=== PATIENT | female | born 1965 | race Caucasian/White ===

== ENCOUNTER 2017-12-12 12:00 | Emergency (ER) | payer BC ==
[~2017-12-12] VITALS: Ht 157.5 cm; Wt 61.0 kg
[2017-12-12] MEDS ORDERED: SODIUM CHLORIDE FLUSH 10ML SYR IVF ONE (12:30)
[2017-12-12] MEDS ORDERED: ONDANSETRON 2MG/ML, 2ML IVPush ONE (12:30)
[2017-12-12 12:40] LABS: BASOPHILS # (AUTO) 0.03 x10^3/uL (0-0.1); BASOPHILS % (AUTO) 1 % (0-1); EOSINOPHILS % (AUTO) 0 % (1-7); LYMPHOCYTES # (AUTO) 0.95 x10^3/uL (1-3.4); LYMPHOCYTES % (AUTO) 16 % (22-44); MD NO; MEAN CORPUSCULAR HEMOGLOBIN 20.8 pg (27.0-34.8); MEAN CORPUSCULAR HGB CONC 31.5 g/dL (32.4-35.8); MEAN PLATELET VOLUME 7.6 fL (7.4-10.4); MONOCYTES # (AUTO) 0.56 x10^3/uL (0.2-0.8); MONOCYTES % (AUTO) 9 % (2-9); NEUTROPHILS # (AUTO) 4.55 x10^3/uL (1.8-6.8); NEUTROPHILS % (AUTO) 75 % (42-75); PLATELET COUNT 247 x10^3/uL (130-400); RED BLOOD COUNT 4.08 x10^6/uL (3.82-5.3); RED CELL DISTRIBUTION WIDTH 18.7 % (9.6-15.2)
[2017-12-12 12:50] LABS: INTERNATIONAL NORMALIZED RATIO 1.13 (0.93-1.1); PROTHROMBIN TIME 11.7 Seconds (9.6-11.5)
[2017-12-12 12:51] LABS: ALANINE AMINOTRANSFERASE 18 U/L (12-78); ALBUMIN 2.8 g/dL (3.4-5.0); ANION GAP 6 mmol/L (5-15); CALCIUM 9.5 mg/dL (8.5-10.1); CHLORIDE 94 mmol/L (98-107); CREATININE 0.87 mg/dL (0.55-1.02)
[2017-12-12 12:56] LABS: ALKALINE PHOSPHATASE 76 U/L (45-117); BILIRUBIN,TOTAL 0.5 mg/dL (0.2-1.0); TOTAL PROTEIN 6.3 g/dL (6.4-8.2)
[2017-12-12] MEDS ORDERED: LIDOCAINE 1%, 10ML ONE (13:12)
[2017-12-12 14:36] VITALS: BP 94/50
== END 2017-12-12 14:55 | disposition home or self-care (01) ==
LOC: ED 14:27
DX: K70.31 Alcoholic cirrhosis of liver with ascites (principal); D50.0 Iron deficiency anemia secondary to blood loss (chronic)
CPT/HCPCS: 36415; 49083; 80053; 82140; 83690; 83880; 85025; 85610; 85730; 93005; 96374; 99285; J2405; J3490

== ENCOUNTER 2018-04-03 20:16 | Inpatient (IN) | payer BC ==
[~2018-04-03] VITALS: Ht 157.5 cm; Wt 53.6 kg
[2018-04-03 20:57] LABS: BASOPHILS # (AUTO) 0.16 x10^3/uL (0-0.1); BASOPHILS % (AUTO) 2 % (0-1); EOSINOPHILS # (AUTO) 0.19 x10^3/uL (0-0.4); EOSINOPHILS % (AUTO) 2 % (1-7); LYMPHOCYTES # (AUTO) 1.19 x10^3/uL (1-3.4); LYMPHOCYTES % (AUTO) 15 % (22-44); MD NO; MEAN CORPUSCULAR HEMOGLOBIN 27.1 pg (27.0-34.8); MEAN CORPUSCULAR HGB CONC 32.5 g/dL (32.4-35.8); MEAN CORPUSCULAR VOLUME 83.3 fL (80-100); MONOCYTES # (AUTO) 0.94 x10^3/uL (0.2-0.8); MONOCYTES % (AUTO) 12 % (2-9); NEUTROPHILS # (AUTO) 5.52 x10^3/uL (1.8-6.8); NEUTROPHILS % (AUTO) 69 % (42-75); PLATELET COUNT 243 x10^3/uL (130-400); RED BLOOD COUNT 4.81 x10^6/uL (3.82-5.3); RED CELL DISTRIBUTION WIDTH 19.3 % (9.6-15.2)
[2018-04-03 21:06] LABS: ALANINE AMINOTRANSFERASE 15 U/L (12-78); ALBUMIN 2.3 g/dL (3.4-5.0); ANION GAP 6 mmol/L (5-15); CHLORIDE 98 mmol/L (98-107)
[2018-04-03 21:09] LABS: ALKALINE PHOSPHATASE 83 U/L (45-117); BILIRUBIN,TOTAL 0.4 mg/dL (0.2-1.0); TOTAL PROTEIN 5.2 g/dL (6.4-8.2)
[2018-04-03] MEDS ORDERED: MORPHINE SULFATE 4 MG/ML, 1ML ONE (22:44)
[2018-04-03] MEDS ORDERED: CEFTRIAXONE PMX 1GM/50ML 50 ML ONE (22:44)
[2018-04-03] MEDS: CEFTRIAXONE PMX 1GM/50ML 50 ML IVPB ONE ×2 (22:52→23:16)
[2018-04-03] MEDS ORDERED: MORPHINE SULFATE 4 MG/ML, 1ML IVPush PRN (23:00)
[2018-04-03] MEDS ORDERED: SODIUM CHLORIDE 0.9% 1,000ML IVBOLUS ONE (23:00)
[2018-04-03] MEDS ORDERED: VANCOMYCIN PER PHARMACY IV ONE (23:00)
[2018-04-03] MEDS ORDERED: SODIUM CHLORIDE FLUSH 10ML SYR IVF ONE (23:00)
[2018-04-03] MEDS ORDERED: OMNIPAQUE 350 MG/ML, 100ML BOTTLE ONE (23:28)
[2018-04-03] MEDS ORDERED: VANCOMYCIN 1,200 MG in SODIUM CHLORIDE 0.9% 250 ML IV ONE (23:30)
[2018-04-04 00:36] VITALS: BP 99/65
[2018-04-04] MEDS ORDERED: MIDO10TA PO (00:46)
[2018-04-04] MEDS ORDERED: SPIR100T2 PO (00:47)
[2018-04-04] MEDS ORDERED: FURO20TA3 PO (00:47)
[2018-04-04] MEDS ORDERED: LEVO75TA5 PO (00:48)
[2018-04-04] MEDS ORDERED: IRON PO (00:53)
[2018-04-04] MEDS ORDERED: POLYETHYLENE GLYCOL 17 GM PACKET PO PRN (01:00)
[2018-04-04] MEDS ORDERED: OXYcodone IR 5MG TABLET PO PRN (01:00)
[2018-04-04] MEDS ORDERED: BISACODYL 10 MG SUPP PR PRN (01:00)
[2018-04-04] MEDS ORDERED: VANCOMYCIN PER PHARMACY MC PRN (01:00)
[2018-04-04] MEDS ORDERED: CEFTRIAXONE PMX 1GM/50ML 50 ML IV ONE (01:00)
[2018-04-04] MEDS ORDERED: ONDANSETRON 2MG/ML, 2ML IVPush PRN (01:00)
[2018-04-04] MEDS ORDERED: morphine SULFATE 10 MG/ML, 1ML IVPush PRN (01:00)
[2018-04-04] MEDS ORDERED: hydrALAzine 20 MG/ML, 1ML IVPush PRN (01:00)
[2018-04-04] MEDS ORDERED: PROMETHAZINE 25 MG/ML, 1ML IM PRN (01:00)
[2018-04-04] MEDS ORDERED: DOCUSATE 100 MG CAPSULE PO PRN (01:00)
[2018-04-04 01:08] VITALS: BP 99/65
[2018-04-04] MEDS ORDERED: PHARMACOKINETIC MONITORING MC PRN (01:30)
[2018-04-04] MEDS: ONDANSETRON ODT 4 MG PO PRN ×2 (01:32→08:39)
[2018-04-04] MEDS: MIDODRINE 5 MG TABLET PO SCH ×4 (01:34→22:52)
[2018-04-04 01:37] LABS: INTERNATIONAL NORMALIZED RATIO 1.21 (0.93-1.1); PROTHROMBIN TIME 12.5 Seconds (9.6-11.5)
[2018-04-04 01:42] LABS: FREE T4 (FREE THYROXINE) 0.9 ng/dL (0.76-1.46); THYROID STIMULATING HORMONE 40.6 mIU/L (0.358-3.740)
[2018-04-04 02:00] LABS: HEMOGLOBIN A1C 4.8 % (4.2-6.3)
[2018-04-04 03:05] LABS: MICROSCOPIC NOT IND
[2018-04-04 03:11] LABS: CULTURE INDICATED? NO
[2018-04-04 05:04] LABS: BASOPHILS # (AUTO) 0.06 x10^3/uL (0-0.1); BASOPHILS % (AUTO) 1 % (0-1); EOSINOPHILS # (AUTO) 0.03 x10^3/uL (0-0.4); EOSINOPHILS % (AUTO) 1 % (1-7); LYMPHOCYTES % (AUTO) 12 % (22-44); MD NO; MEAN CORPUSCULAR HEMOGLOBIN 26.9 pg (27.0-34.8); MEAN CORPUSCULAR HGB CONC 32.5 g/dL (32.4-35.8); MEAN CORPUSCULAR VOLUME 82.8 fL (80-100); MONOCYTES # (AUTO) 0.56 x10^3/uL (0.2-0.8); MONOCYTES % (AUTO) 9 % (2-9); NEUTROPHILS # (AUTO) 4.65 x10^3/uL (1.8-6.8); NEUTROPHILS % (AUTO) 78 % (42-75); PLATELET COUNT 176 x10^3/uL (130-400); RED BLOOD COUNT 4.35 x10^6/uL (3.82-5.3); RED CELL DISTRIBUTION WIDTH 18.5 % (9.6-15.2)
[2018-04-04 05:08] LABS: ALANINE AMINOTRANSFERASE 13 U/L (12-78); ALBUMIN 2.1 g/dL (3.4-5.0); ANION GAP 5 mmol/L (5-15); CALCIUM 7.5 mg/dL (8.5-10.1); CHLORIDE 100 mmol/L (98-107); CREATININE 0.65 mg/dL (0.55-1.02)
[2018-04-04 05:11] LABS: ALKALINE PHOSPHATASE 67 U/L (45-117); BILIRUBIN,TOTAL 0.4 mg/dL (0.2-1.0); TOTAL PROTEIN 4.5 g/dL (6.4-8.2)
[2018-04-04] MEDS ORDERED: SPIRONOLACTONE 25 MG TABLET ONE (06:47)
[2018-04-04] MEDS: FERROUS SULFATE 325 MG TABLET PO SCH (07:12)
[2018-04-04] MEDS: SPIRONOLACTONE 100 MG TABLET PO SCH (07:12)
[2018-04-04] MEDS: FUROSEMIDE 20 MG TABLET PO SCH (07:13)
[2018-04-04 07:15] VITALS: BP 93/58
[2018-04-04] MEDS: RIFAXIMIN 550 MG TABLET PO SCH (08:44)
[2018-04-04] MEDS ORDERED: MAGNESIUM SULFATE PMX 2GM/50ML 50 ML IV ONE (09:30)
[2018-04-04] MEDS ORDERED: LIDOCAINE-MPF 1%, 5ML ONE ×2 (09:49)
[2018-04-04] MEDS: LACTULOSE 10 GM/15 ML UDC PO SCH ×2 (10:38→22:51)
[2018-04-04 13:50] VITALS: BP 93/55
[2018-04-04 20:09] VITALS: BP_SYST 92; BP_SYST 94; BP_DIAS 55; BP_DIAS 59
[2018-04-04] MEDS ORDERED: LEVOTHYROXINE 75 MCG TABLET PO SCH (21:00)
[2018-04-04] MEDS: CEFTRIAXONE PMX 2GM/50ML 50 ML IV SCH (22:50)
[2018-04-04] MEDS: MAGNESIUM CHLORIDE 64 MG TABLET.DR PO SCH (22:51)
[2018-04-04] MEDS: LEVOTHYROXINE 100 MCG TABLET PO SCH (22:51)
[2018-04-05 01:02] VITALS: BP 95/60
[2018-04-05] MEDS ORDERED: SPIRONOLACTONE 25 MG TABLET ONE (05:37)
[2018-04-05] MEDS: FUROSEMIDE 20 MG TABLET PO SCH (05:39)
[2018-04-05] MEDS: VANCOMYCIN 1,200 MG in SODIUM CHLORIDE 0.9% 250 ML IV SCH (05:39)
[2018-04-05] MEDS: SPIRONOLACTONE 100 MG TABLET PO SCH (05:39)
[2018-04-05 05:54] LABS: CHOL/HDL RATIO 6.5; LDL/HDL RATIO 4.2 (0.5-3.0)
[2018-04-05 07:20] VITALS: BP 98/64
[2018-04-05] MEDS: MAGNESIUM CHLORIDE 64 MG TABLET.DR PO SCH ×2 (07:51→21:42)
[2018-04-05] MEDS: FERROUS SULFATE 325 MG TABLET PO SCH (07:51)
[2018-04-05] MEDS: RIFAXIMIN 550 MG TABLET PO SCH (07:51)
[2018-04-05] MEDS: ONDANSETRON ODT 4 MG PO PRN (07:51)
[2018-04-05] MEDS: MIDODRINE 5 MG TABLET PO SCH ×3 (07:51→21:43)
[2018-04-05] MEDS: LACTULOSE 10 GM/15 ML UDC PO SCH ×2 (07:51→21:43)
[2018-04-05 15:24] VITALS: BP 93/55
[2018-04-05 18:33] VITALS: BP 109/74
[2018-04-05 20:15] VITALS: BP 91/57
[2018-04-05] MEDS: LEVOTHYROXINE 100 MCG TABLET PO SCH (21:42)
[2018-04-05] MEDS: CEFTRIAXONE PMX 2GM/50ML 50 ML IV SCH (22:18)
[2018-04-06] MEDS ORDERED: DIPHENHYDRAMINE 50 MG/ML, 1ML IVPush PRN
[2018-04-06] MEDS: VANCOMYCIN 1,200 MG in SODIUM CHLORIDE 0.9% 250 ML IV SCH (00:43)
[2018-04-06 04:18] VITALS: BP 91/58
[2018-04-06] MEDS: SPIRONOLACTONE 100 MG TABLET PO SCH (06:00)
[2018-04-06] MEDS ORDERED: SPIRONOLACTONE 25 MG TABLET ONE (06:19)
[2018-04-06] MEDS: FUROSEMIDE 20 MG TABLET PO SCH (06:21)
[2018-04-06 08:51] VITALS: BP 94/61
[2018-04-06] MEDS: LACTULOSE 10 GM/15 ML UDC PO SCH (08:56)
[2018-04-06] MEDS: FERROUS SULFATE 325 MG TABLET PO SCH (08:56)
[2018-04-06] MEDS: MAGNESIUM CHLORIDE 64 MG TABLET.DR PO SCH (08:56)
[2018-04-06] MEDS: MIDODRINE 5 MG TABLET PO SCH (08:57)
[2018-04-06] MEDS: RIFAXIMIN 550 MG TABLET PO SCH (08:57)
[2018-04-06 13:20] VITALS: BP 95/60
[2018-04-06] MEDS ORDERED: LACT10SO5 PO (15:07)
[2018-04-06] MEDS ORDERED: CEFD300C37 PO (15:07)
[2018-04-06] MEDS ORDERED: LEVO100T PO (15:07)
== END 2018-04-06 16:07 | disposition home or self-care (01) | DRG 432 ==
LOC: ED 23:24 → EDIP 23:59 → 4NOR 04-04 00:25
PROVIDERS: ADMIT Internal Medicine; ATTEND Internal Medicine
PROC: 0W9G3ZZ Drainage of Peritoneal Cavity, Percutaneous Approach (ICD-10-PCS; principal; 2018-04-04)
DX: K70.31 Alcoholic cirrhosis of liver with ascites (principal); E43 Unspecified severe protein-calorie malnutrition; I95.89 Other hypotension; K65.2 Spontaneous bacterial peritonitis; E87.1 Hypo-osmolality and hyponatremia; L03.311 Cellulitis of abdominal wall; D50.9 Iron deficiency anemia, unspecified; E03.9 Hypothyroidism, unspecified; I10 Essential (primary) hypertension; K59.00 Constipation, unspecified; Z80.3 Family history of malignant neoplasm of breast; Z91.048 Other nonmedicinal substance allergy status
CPT/HCPCS: 36415; 49083; 74177; 80053; 80061; 81003; 82042; 82140; 83036; 83615; 83690; 83735; 84145; 84157; 84439; 84443; 85025; 85610; 87040; 87070; 87205; 88112; 89051; 96361; 96365; 96368; 96375; J0696; J2550; J3370; Q0162; Q9967; J1200; J3475; J7030; J7050

== ENCOUNTER 2019-01-23 09:16 | Day surgery (SDC) | payer BC ==
[~2019-01-23] VITALS: Ht 154.9 cm; Wt 58.9 kg
[~2019-01-23 09:16] MED LIST: CEFD300C37 PO; FURO20TA3 PO; IRON PO; LACT10SO5 PO; LEVO100T PO; LEVO75TA5 PO; MIDO10TA PO; SPIR100T4 PO
[2019-01-23] MEDS ORDERED: LACTATED RINGERS 1,000 ML IV SCH (09:44)
[2019-01-23] MEDS ORDERED: OXYcodone 5 MG/5 ML ORAL.SOL UDC PO PRN (10:00)
[2019-01-23] MEDS ORDERED: MEPERIDINE/PF 25MG/0.5ML IVPush PRN (10:00)
[2019-01-23] MEDS ORDERED: FENTANYL PF 100 MCG/2ML IV PRN (10:00)
[2019-01-23] MEDS ORDERED: MIDAZOLAM 1 MG/ML, 2ML IV PRN (10:00)
[2019-01-23] MEDS ORDERED: LABETALOL 5MG/ML, 20ML IV PRN (10:00)
[2019-01-23] MEDS ORDERED: HYDROmorphone 1 MG/ML, 1ML IV PRN (10:00)
[2019-01-23] MEDS ORDERED: ONDANSETRON 2MG/ML, 2ML IVPush PRN (10:00)
[2019-01-23 10:10] VITALS: BP 110/70
[2019-01-23] MEDS ORDERED: ESCI20TA PO (10:10)
[2019-01-23] MEDS ORDERED: LEVO100T PO (10:10)
[2019-01-23] MEDS ORDERED: OXYC5CAP2 PO (10:10)
[2019-01-23] MEDS ORDERED: GABA300C10 PO (10:10)
[2019-01-23] MEDS ORDERED: LIDOCAINE 2% 100MG/5ML SYRINGE ONE (10:21)
[2019-01-23] MEDS ORDERED: PROPOFOL 10 MG/ML, 20ML ONE (10:21)
[2019-01-23] MEDS ORDERED: FENTANYL PF 100 MCG/2ML ONE (10:22)
[2019-01-23] MEDS ORDERED: MIDAZOLAM 1 MG/ML, 2ML ONE (10:22)
[2019-01-23] MEDS ORDERED: EPINEPHRINE SYRINGE 0.1 MG/ML, 10ML ONE (14:22)
== END 2019-01-23 12:45 | disposition home or self-care (01) ==
LOC: OUT 09:16
PROVIDERS: ATTEND Internal Medicine Geriatric Medicine
DX: D12.6 Benign neoplasm of colon, unspecified (principal)
CPT/HCPCS: 45390; 88305; J2250; J2704; J3010; J7120